=== PATIENT | male | born 1970 | race Two or more races ===

== ENCOUNTER 2019-11-25 01:09 | Emergency (ER) | payer MEDICAID ==
[~2019-11-25] VITALS: Ht 170.2 cm; Wt 95.3 kg
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
[2019-11-25 01:25] VITALS: BP 144/96
--- NOTE | 2019-11-25 01:35 | NUR ---
SEEN AND EXAMINED BY
--- NOTE | 2019-11-25 02:19 | NUR ---
Discharged, and medically cleared for booking. In custody of [facility].
== END 2019-11-25 02:20 ==
LOC: ER 01:18
DX: Z02.89 Encounter for other administrative examinations (principal); J45.909 Unspecified asthma, uncomplicated